=== PATIENT | male | born 1940 | race Hispanic/Latino ===

== ENCOUNTER 2021-02-13 17:50 | Emergency (ER) | payer MEDICARE, OTHER ==
[~2021-02-13] VITALS: Ht 162.6 cm; Wt 77.0 kg
[2021-02-13] MEDS ORDERED: ZANTAC-360 (FAM10 MG PO (19:17)
[2021-02-13] MEDS ORDERED: LASIX40 MG PO (19:17)
[2021-02-13] MEDS ORDERED: LOSARTAN POTASS50 MG PO (19:18)
[2021-02-13] MEDS ORDERED: CYCLOBENZAPRINE10 MG PO (19:19)
[2021-02-13] MEDS ORDERED: HYDROCODON-ACE1 EA10 PO (20:57)
[2021-04-21] MEDS ORDERED: NEURONTIN100 MG PO (15:32)
[2021-04-21] MEDS ORDERED: IRON18 MG PO (15:32)
[2021-04-21] MEDS ORDERED: NORVASC5 MG PO (15:32)
== END 2021-02-13 21:18 | disposition home or self-care (01) ==
LOC: ED 17:50
DX: B02.9 Zoster without complications (principal); I50.9 Heart failure, unspecified; Z79.899 Other long term (current) drug therapy
CPT/HCPCS: 71045; 80053; 83880; 85025; 99283-25

== ENCOUNTER 2021-04-27 07:15 | Day surgery (SDC) | payer MEDICARE, OTHER ==
--- NOTE | 2021-04-21 15:51 | NUR ---
DOS: 04/27/21 STAIRS: HAS TWO STEPS AND A RAMP WALKER: HAS FWW AND CANE SHOWER: STEP OVER SHOWER, BUT FAMILY WITH BATH HIM TOILETS: HAS RISER FAMILY WITH MAKE SURE HE GETS TO ALL APPOINTMENTS AND PHYSICAL THERAPY AND WILL BE HOME WITH HIM.
[~2021-04-27] VITALS: Ht 162.6 cm; Wt 83.8 kg
[~2021-04-27 07:15] MED LIST: CYCLOBENZAPRINE10 MG PO; HYDROCODON-ACE1 EA10 PO; IRON18 MG PO; LASIX40 MG PO; LOSARTAN POTASS50 MG PO; NEURONTIN100 MG PO; NORVASC5 MG PO; ZANTAC-360 (FAM10 MG PO
[2021-04-27] MEDS ORDERED: TAMSULOSIN HCL0.4 MG PO (11:36)
[2021-04-27] MEDS ORDERED: CELECOXIB200 MG PO (11:37)
[2021-04-27] MEDS ORDERED: SENNA LAX8.6 MG PO (11:37)
[2021-04-27] MEDS ORDERED: XARELTO10 MG PO (11:37)
[2021-04-27] MEDS ORDERED: OXYCODONE HCL5 MG PO ×2 (11:37→12:54)
--- NOTE | 2021-04-27 12:46 | NUR ---
04/27/21 1246 Blanca Delgado 1144 PT ARRIVED IN PACU SLEEPY. ON QUE SET AT 4ML/HR. 1154 C/O PAIN 5/10 IN L KNEE. FENTANYL 25MCG GIVEN IVP. 1204 NO CHANGE IN PAIN LEVEL. GRABBING AT L KNEE. FENTANYL 25MCG GIVEN IVP. 1211 ATTEMPTED TO CALL INTERPRETOR LINE WITH NO ANSWER AFTER 10 MINUTES. DAUGHTER AT BEDSIDE TRANSLATING. C/O L KNEE PAIN 6/10. TORADOL 15MG GIVEN IVP PER DR ORDERS. 1230 TC TO ANESTHESIA. WILL RETURN TO RE BLOCK PT. 1236 C/O L KNEE PAIN 6/10. DAUGHTER AT BEDSIDE. 1245 RESTING. REU. ENCOURAGED COUGH, DEEP BREATHING.
--- NOTE | 2021-04-27 13:10 | NUR ---
PATIENT ARRIVED TO ROOM FROM PACU. RECEIVED REPORT FROM DARRIN VERDUGO. VSS. PATIENT RATES HIS PAIN 2/10. DENIES NAUSEA. DRESSING IS CLEAN, DRY, AND INTACT. PATIENT STATES HIS KNEE IS NUMB. PROVIDED PATIENT WITH CRACKERS, JELLO, AND WATER. FAMILY AT BEDSIDE TRANSLATING FOR PATIENT. CALL LIGHT WITHIN REACH.
--- NOTE | 2021-04-27 14:22 | NUR ---
1408: PT WAKES WHEN THIS RN ENTERS THE ROOM. ANSWERS QUESTIONS APPROPRIATELY. DENIES PAIN AND NAUSEA AT THIS TIME. VSS, RESP EVEN AND UNLABORED. DRESSING C/D/I. CRYO CUFF, SCDS AND COMPRESSION SOCKS IN PLACE. SCHED RX ADMINISTERED ORDERED. REG LUNCH TRAY OFFERED AND PT DECLINES AT THIS TIME. COMFORTABLE WITHOUT NEEDS. CALL LIGHT WITHIN REACH
--- NOTE | 2021-04-27 15:08 | NUR ---
1500: PT WAKES WHEN THIS RN ENTERS THE ROOM. DENIES PAIN AND NAUSEA. VSS, RESP EVEN AND UNLABORED. DRESSING REMAINS C/D/I. CRYO CUFF, SCDS AND COMPRESSION SOCKS REMAIN IN PLACE. REPORTS NORMAL SENSATION TO BILAT LE. USING IS APPROPRIATELY. REPORTS URGE TO VOID, VOIDS 300ML IN URINAL. DENIES FURTHER NEEDS. CALL LIGHT WITHIN REACH. DAUGHTER ATTENTIVE AT THE BEDSIDE
--- NOTE | 2021-04-27 17:04 | NUR ---
1600: PHYSICAL THERAPIST ARRIVES AT THE BEDSIDE FOR PHYSICAL THERAPY SESSION 1645: PT SAFE FOR D/C PER PHYSICAL THERAPY. VSS, RESP EVEN AND UNLABORED. DRESSING REMAIN C/D/I. DENIES PAIN AND NAUSEA. SECOND DOSE OF ANCEF ADMINISTERED ORDERED. SL REMOVED WITH CATH TIP ITNACT AND PRESSURE APPLIED TO SITE, WNL. TO DRESS FOR D/C WITH DAUGHTER'S ASSISTANCE
--- NOTE | 2021-04-27 17:25 | NUR ---
1720: D/C INSTRUCTIONS PROVIDED AND DISCUSSED. DAUGHTER TRANSLATES FOR PT. PT VOICES UNDERSTANDING AND DENIES QUESTIONS AND CONCERNS AT THIS TIME. WHEELED OFF OFF OF UNIT IN WC BY THIS RN. TRANFERS INTO VEHICLE INDEPENDENTLY. NO PHYSICAL S/S OF DISTRESS AT THIS TIME
--- NOTE | 2021-04-28 07:28 | OR ---
[facility] [address] [place], [place] [address] Signed DATE OF OPERATION: 04/27/2021 SURGEON: Misael Valerio MD PREOPERATIVE DIAGNOSIS: Severe degenerative joint disease, left knee. POSTOPERATIVE DIAGNOSIS: Severe degenerative joint disease, left knee. PROCEDURE PERFORMED: Left total knee arthroplasty with Mark. REAL ESTATE DEVELOPMENT MANAGER: SABRINA Louis. Amber was present and critical for all portions of the procedure. ANESTHESIA: Spinal. BLOOD LOSS: 175 mL. IMPLANTS: Allen Triathlon size 5 femur, 6 tibia, 11 mm poly and a 32 mm patella. BRIEF HISTORY: Tramaine is an 81-year-old gentleman with severe pain in his knee that is unresponsive to nonoperative treatment. Risks and benefits of operative treatment discussed with him and he elected to proceed. DESCRIPTION OF PROCEDURE: Once consent was obtained, he was taken to the operating room. After adequate anesthesia, he was placed on the operating room table. All downside pressure points well padded hip bump was placed on the left. The left leg was prepped and draped in a standard sterile fashion. Standard anterior approach through a longitudinal incision was taken through the skin and subcutaneous tissue. All bleeders were cauterized as we went. No tourniquet was placed. The mid vastus approach was undertaken and the MCL was elevated as a sleeve around the posteromedial corner. The patella was mobilized laterally, however, it was very difficult secondary to overgrowth of the patella and a Electronically Signed By: MISAEL VALERIO MD 04/28/21 0728 PATIENT NAME: TRAMAINE GONZALEZ OPERATIVE REPORT DATE OF : 40 REPORT #: [id number] PHYSICIAN: MISAEL VALERIO MD PCP: PAT MELCHOR MD REPORT IS CONFIDENTIAL AND NOT TO BE RELEASED WITHOUT AUTHORIZATION [facility] [address] [place], [place] [address] Signed [place] of [place]. The osteophytes were removed. We went ahead and made the patellar cut, placed a protective plate. This allowed better lateralization. The infrapatellar fat pad was excised. There was no ACL and the menisci were absent. Knee was then flexed and osteophytes removed again provoked to protect the lateral exposure. The checkpoint and computer ray were placed in the medial femoral condyle. The tibial computer was percutaneously placed one handbreadth below the tibial tuberosity. The tibial checkpoint was placed as well. The leg was then registered with the computer as was the fine anatomic points of the knee. Adjustments were made to the plan given his extreme varus and slight flexion contracture. The overall alignment looked good. Once this was accomplished, the robot was brought in and the straight bone cuts were made with care taken to protect the patellar tendon and MCL. The 2 angle cuts were made and all bone pieces were removed as were any remaining osteophytes. Again, the lateral exposure was fairly difficult. The trials were then positioned with 11 mm polyethylene and we had good range of motion and good alignment, it was stable through all range of motion. The patella was then drilled for a 32 mm patella. The femoral drill holes were made in the tibia was finished using the keel punch. We did downsize to a 5 tibia at that time to show just a size 5 femur and tibia. The bone was pulse lavaged and packed with dry Ray-Maycol. The cement was mixed and reached proper consistency, it was placed on the tibial and patellar components as well as the corresponding bone. The tibia was impacted in position first, followed by removal of all the cement that extruded. The poly was then snapped into position and the femur was impacted. The knee was extended and nicely loaded and any remaining overflow was removed. The patella was clamped into position, again overflow was removed. The cement was allowed to harden. Once it hardened sufficiently, the knee was flexed, any remaining overflow was removed. The knee was then pulse lavaged using 500 mL of Aricept and 3 L normal saline. The On-Q pain pump was percutaneously placed in the adductor canal from the suprapatellar pouch. The arthrotomy was then closed using #2 Stratafix, #0 Stratafix through the subcutaneous tissue and 3-0 Stratafix for the skin. Steri-Strips were applied. The wound was dressed with an Acticoat seven dressing, ABD, and Oswald wrap. He tolerated the procedure well. All sponge, needle, and instrument counts were correct. Misael Valerio MD BA/MODL /[id number] Electronically Signed By: MISAEL VALERIO MD 04/28/21 0728 PATIENT NAME: TRAMAINE GONZALEZ OPERATIVE REPORT DATE OF : 40 REPORT #: [id number] PHYSICIAN: MISAEL VALERIO MD PCP: PAT MELCHOR MD REPORT IS CONFIDENTIAL AND NOT TO BE RELEASED WITHOUT AUTHORIZATION [facility] [address] [facility] [place], [place] [address] Signed Copies: ~ Electronically Signed By: MISAEL VALERIO MD 04/28/21 0728 PATIENT NAME: TRAMAINE GONZALEZ OPERATIVE REPORT DATE OF : 40 REPORT #: [id number] PHYSICIAN: MISAEL VALERIO MD PCP: PAT MELCHOR MD REPORT IS CONFIDENTIAL AND NOT TO BE RELEASED WITHOUT AUTHORIZATION
== END 2021-04-27 17:20 | disposition home or self-care (01) ==
LOC: DS 07:15
PROVIDERS: ATTEND Specialist
PROC: 8E0YXBZ Computer Assisted Procedure of Lower Extremity (ICD-10-PCS; 2021-04-27)
PROC: 0SRD069 Replacement of Left Knee Joint with Oxidized Zirconium on Polyethylene Synthetic Substitute, Cemented, Open Approach (ICD-10-PCS; principal; 2021-04-27 09:15)
DX: M17.12 Unilateral primary osteoarthritis, left knee (principal); G89.18 Other acute postprocedural pain; I10 Essential (primary) hypertension
CPT/HCPCS: 01402; 64447; 64450; 76942; 97161; C1713; C1776; J0690; J1100; J1885; J2001; J2250; J2370; J2405; J2704; J2795; J3010; J7040; J7121

== ENCOUNTER 2025-04-18 16:39 | Emergency (ER) | payer MEDICARE, OTHER ==
[~2025-04-18] VITALS: Ht 162.6 cm; Wt 81.2 kg
[~2025-04-18 16:39] MED LIST changes: +CELECOXIB200 MG PO; +OXYCODONE HCL5 MG PO; +SENNA LAX8.6 MG PO; +TAMSULOSIN HCL0.4 MG PO; +XARELTO10 MG PO
--- OUTSIDE RECORDS SUMMARY | 2025-04-18 16:46 | XMS ---
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 Tami has no Care Guidelines for this patient. [place] VISIT COUNT (12 MO.) [address] [facility] TOTAL 2 NOTE: Visits indicate total known visits. ED/UCC VISIT TRACKING (12 MO.) 04/18/2025 16:41 [facility] [place] TYPE: Emergency COMPLAINT: - VOMITING 03/20/2025 14:39 [facility] [place] TYPE: Emergency DIAGNOSES: - Other injury of unspecified body region, initial encounter - LOWER BACK PAIN INPATIENT VISIT TRACKING (12 MO.) No inpatient visits to display in this time frame [email or web address]
[2025-04-18] MEDS ORDERED: NITROGLYCERIN PACKET ONE (17:00)
[2025-04-18] MEDS ORDERED: NITROGLYCERIN PACKET TOP ONE (17:00)
[2025-04-18] MEDS ORDERED: SODIUM CHLORIDE 0.9% 1,000 ML IV PRN (17:00)
[2025-04-18 17:05] LABS: MCH 28.9 PG (25.7-32.2); MCHC 33.1 g/dL (32.3-36.5); MCV 87.5 fL (79.0-92.2); RBC 4.08 M/uL (4.63-6.08)
[2025-04-18] MEDS ORDERED: DIGOXIN 500 MCG/2 ML AMP IV ONE (17:15)
[2025-04-18] MEDS ORDERED: PREDNISONE5 MG PO (17:22)
[2025-04-18] MEDS ORDERED: AZITHROMYCIN250 MG PO (17:23)
[2025-04-18] MEDS ORDERED: METHOTREXATE2.5 MG PO (17:25)
[2025-04-18 17:28] LABS: ALT (SGPT) 20.0 U/L (14-59); AST (SGOT) 39.0 U/L (15-37); GLOMERULAR FILTRATION RATE,EST 39.0 mL/min (>60); PROTEIN, TOTAL 7.3 g/dL (6.4-8.2); UREA NITROGEN 26.0 mg/dL (7-18)
[2025-04-18 17:29] LABS: LYMPHOCYTES, MANUAL DIFF 13; MONOCYTES, MANUAL DIFF 1; NEUTROPHILS, MANUAL DIFF 86
[2025-04-18 17:34] LABS: LACTIC ACID, BLOOD 8.9 mmol/L (0.4-2.0)
[2025-04-18] MEDS ORDERED: SODIUM CHLORIDE 0.9% 500 ML IV PRN (17:45)
[2025-04-18] MEDS ORDERED: SODIUM CHLORIDE IV ONE (17:51)
[2025-04-18] MEDS ORDERED: [UNRECOGNIZED DRUG - OTHER] IV ONE (17:51)
[2025-04-18] MEDS ORDERED: KETAMINE IV ONE (17:51)
[2025-04-18] MEDS ORDERED: KETAMINE in NS 50 MG/5 ML SYR ONE (17:53)
[2025-04-18] MEDS ORDERED: FUROSEMIDE 20 MG/2 ML VIAL IV ONE (18:15)
[2025-04-18 19:28] LABS: ALT (SGPT) 18.0 U/L (14-59); AST (SGOT) 33.0 U/L (15-37); GLOMERULAR FILTRATION RATE,EST 43.0 mL/min (>60); PROTEIN, TOTAL 6.4 g/dL (6.4-8.2); UREA NITROGEN 27.0 mg/dL (7-18)
[2025-04-18 21:58] LABS: BLOOD/HGB, URINE NEGATIVE (Negative); KETONE, URINE NEGATIVE (Negative); LEUK ESTERASE, URINE NEGATIVE (negative); NITRITE, URINE NEGATIVE (negative)
[2025-04-18] MEDS ORDERED: HEPARIN SOD,PORK IN 0.45% NACL 500 ML IV SCH (22:45)
[2025-04-18 22:47] LABS: INR 1.26 (0.80-1.30); PROTIME 15.0 Sec (11.2-14.2)
[2025-04-18] MEDS ORDERED: FUROSEMIDE 40 MG/4 ML VIAL IV ONE (23:45)
[2025-04-19] MEDS ORDERED: AZITHROMYCIN 500 MG in DEXTROSE 5% 250 ML IV ONE (01:15)
[2025-04-19 02:02] VITALS: BP 110/78
--- NOTE | 2025-04-19 23:09 | EKG ---
[facility] [address] [facility] [place] [address] Signed Atrial fibrillation with rapid ventricular response with premature ventricular or aberrantly conducted complexes Left axis deviation Pulmonary disease pattern Minimal voltage criteria for LVH, may be normal variant ( Aneta product ) ST elevation, consider early repolarization, pericarditis, or injury Abnormal ECG No previous ECGs available Confirmed by Vandana Wesley MD () on 04/19/2025 11:09:26 PM Electronically Signed By: VANDANA WESLEY MD 04/19/25 2309 PATIENT NAME: TRAMAINE BAEZ Electrocardiogram DATE OF : 40 PHYSICIAN: VANDANA WESLEY MD REPORT #: [id number] REPORT IS CONFIDENTIAL AND NOT TO BE RELEASED WITHOUT AUTHORIZATION
--- NOTE | 2025-04-19 23:10 | EKG ---
[facility] [address] [facility] [place] [address] Signed Sinus tachycardia Left axis deviation Minimal voltage criteria for LVH, may be normal variant ( Wil product ) ST elevation, consider early repolarization, pericarditis, or injury Abnormal ECG When compared with ECG of 18-APR-2025 16:55, Sinus rhythm has replaced Atrial fibrillation Confirmed by Vandana Wesley MD () on 04/19/2025 11:10:22 PM Electronically Signed By: VANDANA WESLEY MD 04/19/25 2310 PATIENT NAME: TRAMAINE BAEZ Electrocardiogram DATE OF : 40 PHYSICIAN: VANDANA WESLEY MD REPORT #: [id number] REPORT IS CONFIDENTIAL AND NOT TO BE RELEASED WITHOUT AUTHORIZATION
--- NOTE | 2025-04-19 23:12 | EKG ---
[facility] [address] [facility] [place] [address] Signed Normal sinus rhythm Left anterior fascicular block Abnormal ECG When compared with ECG of 18-APR-2025 17:31, Vent. rate has decreased BY 44 BPM Nonspecific T wave abnormality now evident in Anterior leads Confirmed by Vandana Wesley MD () on 04/19/2025 11:12:21 PM Electronically Signed By: VANDANA WESLEY MD 04/19/25 2312 PATIENT NAME: TRAMAINE BAEZ STELLA Electrocardiogram DATE OF : 40 PHYSICIAN: VANDANA WESLEY MD REPORT #: [id number] REPORT IS CONFIDENTIAL AND NOT TO BE RELEASED WITHOUT AUTHORIZATION
== END 2025-04-19 02:05 | disposition home or self-care (01) ==
LOC: ED 16:39
PROVIDERS: Emergency Medicine; Internal Medicine
DX: J96.01 Acute respiratory failure with hypoxia (principal); I50.9 Heart failure, unspecified; Z79.01 Long term (current) use of anticoagulants; Z79.899 Other long term (current) drug therapy; Z79.2 Long term (current) use of antibiotics
CPT/HCPCS: 36415; 71045; 80053; 81003; 82803; 83605; 83880; 84484; 85025; 85610; 85730; 87040; 87077; 87186; 93005; 93010; 96365; 96375; 96376; 99291; A4311; J0456; J0696; J1160; J1644; J1938; J2405; J7030; J7060